=== PATIENT | male | born 1995 | race Caucasian/White ===

== ENCOUNTER 2016-05-25 11:50 | Emergency (ER) | payer BC | END 2016-05-25 12:11 | disposition home or self-care (01) | LOC: ER 11:50 | PROC: 0HQ1XZZ Repair Face Skin, External Approach (ICD-10-PCS; principal; 2016-05-25) | DX: S01.112A Laceration without foreign body of left eyelid and periocular area, initial encounter (principal); F41.9 Anxiety disorder, unspecified; W45.8XXA Other foreign body or object entering through skin, initial encounter | CPT/HCPCS: 96372; 99283 ==